=== PATIENT | male | born 1995 | race Caucasian/White ===

== ENCOUNTER 2024-02-12 08:10 | Outpatient (AMB) | payer OTHER, SELFPAY ==
[2024-02-12 08:14] VITALS: BP 136/80; PULSE 81; TEMP 36.8; O2SAT 98; BMI 25.0
--- NOTE | 2024-02-12 08:14 | MHC.OFFWIV ---
Intake Vital Signs 02/12/24 08:14 Height 5 ft 11 in Weight 179 lb BMI 25.0 BP 136/80 Blood Pressure Location Lt brachial Position Sitting Pulse 81 Pulse Source Pulse Oximeter Temp 98.3 F Temp Source Oral Pulse Oximetry (%) 98 Intake Visit Reasons: EP ?Sinus Infection Intake Note: pt is here for c.o sinus infection Patient Tobacco Use Status: Never used Tobacco Allergies No Known Allergies Allergy (Verified 02/12/24 08:15) Do you need a note to return to daycare/school/sports/work: No HPI HPI Comments History of Present Illness Details Patient presents to the walk in for 4 days sinus congestion and feeling like ears are blocked. Endorses cough in the morning but improves after sitting up. Cough is nonproductive Clear nasal discharge Denies fever, chest pain, shortness of breath, palpitations, syncope, weakness Denies headache, ear pain, sore throat. Reports took sudafed a couple days ago without improvement in his symptoms. [facility] Social History Patient Tobacco Use Status: Never used Tobacco Review of Systems Const All systems reviewed & are unremarkable except as noted in HPI and below Physical Exam Vital Signs: Last Vital Signs Temp 98.3 F 02/12/24 08:14 Pulse 81 02/12/24 08:14 BP 136/80 02/12/24 08:14 Pulse Ox 98 02/12/24 08:14 BMI result Body Mass Index 25.0 General: awake, alert, oriented. Answers questions appropriately. Fully engaged in examination. Skin: warm, dry, intact HEENT: TMs intact bilaterally, right canal with small abrasion. Posterior pharynx without erythema or exudate. Sclera without icterus or injection. Non tender to palpation/percussion over sinuses Cardiac: External chest normal in appearance. RRR Respiratory: LSCTAB. Abdomen: without gross distension. Neurological: Oriented to person, place, time and situation. Thought process intact. Psychiatric: Appropriate mood and affect. Good judgment and insight. Assessment & Plan Assessment & Plan (1) URI (upper respiratory infection): Code(s): J06.9 - Acute upper respiratory infection, unspecified Plan URI, no abx warranted. Patient was reassured, symptoms most likely viral and will improve over the next 7-10 days. Declined cough medication , declined work note Rest, drink plenty of fluids, tylenol or motrin as needed. Recommend taking OTC nasal decongestants. Follow up with pcp or in clinic for any new or worsening symptoms. Go to ER for shortness of breath, chest pain, palpitations, weakness, dizziness. All questions and concerns were answered, patient agrees with the plan Coding Level of Care Code Est Pt Level 3 (93774) Diagnoses URI (upper respiratory infection) J06.9
== END 2024-02-12 10:16 | disposition home or self-care (01) ==
PROVIDERS: Visit Provider Registered Nurse Emergency
DX: J06.9 Acute upper respiratory infection, unspecified (principal)
CPT/HCPCS: 99213